=== PATIENT | female | born 1980 | race Hispanic/Latino ===

== ENCOUNTER 2019-10-27 09:42 | Outpatient (CLI) | payer BC ==
--- NOTE | 2019-10-27 10:59 | MMO ---
Left Breast MAMMO Unilat Diag DDI LT+AZEEM. CLINICAL HISTORY: Patient is 38 years old and is seen for additional evaluation requested from prior study. The patient has no family history of breast cancer. The patient has no personal history of cancer. VIEWS: The views performed were: left craniocaudal spot compression magnification; left mediolateral spot compression magnification; and left mediolateral with tomosynthesis. FILMS COMPARED: The present examination has been compared to prior imaging studies performed at [facility] on 10/12/2019, and at [facility] on 10/27/2019. This study has been interpreted with the assistance of computer-aided detection. MAMMOGRAM FINDINGS: There are scattered fibroglandular densities. There is an oval mass measuring 5 x 9 mm with associated amorphous or indistinct calcifications with grouped or clustered distribution seen in the left breast at 3 o'clock. IMPRESSION: MASS IN THE LEFT BREAST IS PROBABLY BENIGN. FOLLOW-UP IN 6 MONTHS IS RECOMMENDED. THE RESULTS OF THIS EXAM WERE SENT TO THE PATIENT. ACR BI-RADS Category 3 - Probably benign finding - short interval follow-up suggested. [facility] will notify the patient of the need for additional imaging services. MAMMOGRAPHY NOTE: 1. A negative mammogram report should not delay a biopsy if a dominant of clinically suspicious mass is present. 2. Approximately 10% to 15% of breast cancers are not detected by mammography. 3. Adenosis and dense breasts may obscure an underlying neoplasm. Reported by: REGI GIRON MD Electonically Signed: [id number]
--- NOTE | 2019-10-27 12:21 | ULT ---
LEFT BREAST ULTRASOUND: Date: 10/27/2019 HISTORY: This is a follow-up to a prior diagnostic mammogram revealing a mass with some microcalcifications in the left breast at 3 o'clock. FINDINGS: The 3 o'clock region of the left breast is evaluated approximately 3.0 cm from the nipple. There is a circumscribed oval hypoechoic mass measuring approximately 0.4 x 0.8 x 1.0 cm in size with what appear to be some microcalcifications within the edge of the mass. I would favor this represent ing that of a fibroadenoma. IMPRESSION: Circumscribed oval slightly hypoechoic mass with several microcalcifications on the periphery of the mass. 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 BI-RADS Category 3 - Probably benign findings. A 6 month follow-up left unilateral diagnostic mammog hector and left breast ultrasound is recommended for further assessment. The facility will notify patient of need for additional imaging services. POS: OFF
== END 2019-10-27 09:43 | disposition home or self-care (01) ==
LOC: BICMAMMO 09:42
PROVIDERS: ATTEND Advanced Practice Midwife
DX: R92.8 Other abnormal and inconclusive findings on diagnostic imaging of breast (principal); N63.20 Unspecified lump in the left breast, unspecified quadrant; R92.0 Mammographic microcalcification found on diagnostic imaging of breast
CPT/HCPCS: G0279

== ENCOUNTER 2020-05-11 09:26 | Outpatient (CLI) | payer BC | END 2020-05-11 09:27 | disposition home or self-care (01) | LOC: BICMAMMO 09:26 | PROVIDERS: ATTEND Advanced Practice Midwife | DX: R92.8 Other abnormal and inconclusive findings on diagnostic imaging of breast (principal); R92.1 Mammographic calcification found on diagnostic imaging of breast | CPT/HCPCS: G0279 ==

== ENCOUNTER 2020-10-27 08:21 | Outpatient (CLI) | payer BC | END 2020-10-27 08:22 | disposition home or self-care (01) | LOC: BICMAMMO 08:21 | PROVIDERS: ATTEND Advanced Practice Midwife | DX: D24.2 Benign neoplasm of left breast (principal) | CPT/HCPCS: 77066; G0279 ==

== ENCOUNTER 2022-09-06 09:10 | Outpatient (CLI) | payer BC ==
[2022-09-06 10:14] LABS: #Eosinphils 0.1 10x3/uL (0.0-0.5); #Monocytes 0.5 10x3/uL (0.0-1.1); %Basophils 0.6 % (0.0-2.0); %Eosinophils 1.1 % (0.0-6.0); %Lymphocytes 28.2 % (18.0-47.0); %Monocytes 7.8 % (0.0-10.0); %Neutrophils 61.8 % (40.0-75.0); Hemoglobin 13.8 g/dL (12.0-15.5); Mean Corpuscular HGB CONC 32.2 g/dL (32.0-36.0); Mean Corpuscular Hemoglobin 30.1 pg (27.0-33.0); Mean Corpuscular Volume 93.2 fl (81.6-98.3); Mean Platelet Volume 11.2 fl (7.4-10.4); Platelet Count 234 10x3/uL (150-450); RBC Distribution Width 13.2 % (11.5-14.5); Red Blood Cell (RBC) Count 4.59 10x6/uL (3.90-5.03); White Blood Cell (WBC) Count 6.5 10x3/uL (3.5-10.5)
[2022-09-06 10:41] LABS: Anion Gap 14 mmol/L (10-20); BUN (Urea Nitrogen) 10 mg/dL (7.0-18.7); Calc. Creatinine Clearance 0 mL/min (70-130); Calcium 9.6 mg/dL (7.8-10.44); Carbon Dioxide 27 mmol/L (22-29); Chloride 104 mmol/L (98-107); Estimated GFR 112; Glucose 67 mg/dL (70-105); Sodium 141 mmol/L (136-145)
== END 2022-09-06 09:11 | disposition home or self-care (01) ==
LOC: LABBT 09:10
PROVIDERS: ATTEND Surgery
DX: Z01.812 Encounter for preprocedural laboratory examination (principal); L05.91 Pilonidal cyst without abscess
CPT/HCPCS: 80048; 85025

== ENCOUNTER 2022-09-19 09:55 | Day surgery (SDC) | payer BC ==
[2022-09-06 09:57] VITALS: BMI 23.6
[2022-09-19] MEDS ORDERED: Acetaminophen 500 MG TAB ONE (10:45)
[2022-09-19] MEDS ORDERED: Bupivacaine 0.25% HCL 30 ML VIAL ONE (11:25)
[2022-09-19] MEDS ORDERED: Lidocaine 2% PF 5 ML VIAL ONE (11:25)
[2022-09-19] MEDS ORDERED: EPINEPHrine 1 MG/ML AMP ONE (11:25)
[2022-09-19] MEDS ORDERED: fentaNYL PF 100 MCG/2 ML SYRINGE ONE (12:43)
[2022-09-19] MEDS ORDERED: CEFAZOLIN 2 GM VIAL ONE (12:57)
[2022-09-19] MEDS ORDERED: Sodium Chloride 0.9% 100 ML ONE (12:57)
[2022-09-19] MEDS ORDERED: NEOSTIGMINE 3 MG/3 ML SYR 3 MG/3 ML SYRINGE ONE (13:10)
[2022-09-19] MEDS ORDERED: Dexamethasone 20 MG/5 ML VIAL ONE (13:10)
[2022-09-19] MEDS ORDERED: Rocuronium Bromide 10 MG/ML (10ML VIAL) ONE (13:10)
[2022-09-19] MEDS ORDERED: PROPOFOL 200 MG/20 ML VIAL ONE (13:10)
[2022-09-19] MEDS ORDERED: Ondansetron PF 4 MG/2 ML Vial ONE (13:10)
[2022-09-19] MEDS ORDERED: Lidocaine 1% PF 5 ML VIAL ONE (13:10)
[2022-09-19] MEDS ORDERED: Glycopyrrolate 0.2 MG/ML 5 ML SYRINGE ONE (13:10)
[2022-09-19] MEDS ORDERED: Ketorolac Tromethamine 30 MG/ML VIAL ONE (13:10)
== END 2022-09-19 15:34 | disposition home or self-care (01) ==
LOC: SDC 09:55
PROVIDERS: ATTEND Surgery
PROC: 0JB90ZZ Excision of Buttock Subcutaneous Tissue and Fascia, Open Approach (ICD-10-PCS; principal; 2022-09-19)
DX: L05.91 Pilonidal cyst without abscess (principal)
CPT/HCPCS: 88304; J0171; J1100; J1885; J2001; J2405; J2704; J3490; S0020